=== PATIENT | female | born 1970 | race American Indian/Alaskan Native ===

== ENCOUNTER 2019-07-23 06:14 | Day surgery (SDC) | payer OTHER ==
[~2019-07-23 06:14] MED LIST: ACETAMINOPHEN 500 MG TAB PO SCH; CELECOXIB 200 MG CAP PO NR; ENOXAPARIN 40 MG/0.4 ML INJ SUB-Q SCH; GABAPENTIN 300 MG CAP PO NR; LACTATED RINGERS 1,000 ML IV SCH; MIDAZOLAM 2 MG/2 ML INJ IV NR; SCOPOLAMINE TRANSDERMAL PATCH 72 HR TD NR; SODIUM CHLORIDE 0.9% 1000 ML 1,000 ML, EPINEPHrine/PF 1:1,000 1 MG, LIDOCAINE 1% 20 mL ... IR SCH; ceFAZolin/Water 2 GM/20 ML 2 GM/20 ML SYRINGE IV NR
--- NOTE | 2019-07-23 06:55 | Anesthesia Consultation ---
Anesthesia Consult and Med Hx Date of service: 07/23/19 - Airway Anesthetic Teeth Evaluation: Good ROM Head & Neck: Adequate Mental/Hyoid Distance: Adequate Mallampati Class: Class II Intubation Access Assessment: Probably Good - Pulmonary Exam CTA: Yes - Cardiac Exam Cardiac Exam: RRR - Pre-Operative Health Status ASA Pre-Surgery Classification: ASA1 Proposed Anesthetic Plan: General - Pulmonary Hx Smoking: No Hx Respiratory Symptoms: No - Cardiovascular System Hx Hypertension: No Hx Heart Attack/AMI: No - Central Nervous System CVA: No Hx Back Pain: Yes (CHRONIC) - Gastrointestinal Hx Gastroesophageal Reflux Disease: No - Endocrine Hx Renal Disease: No Hx Liver Disease: No Hx Insulin Dependent Diabetes: No Hx Non-Insulin Dependent Diabetes: No Hx Thyroid Disease: No - Hematic Hx Anemia: No - Other Systems Hx Obesity: No - Additional Comments Anesthesia Medical History Comments: No hx anesthetic complications.
[2019-07-23] MEDS ORDERED: HYDROmorphone 1 MG/1 ML INJ IV PRN (06:56)
--- NOTE | 2019-07-23 06:56 | Anesthesia Day of Surgery ---
Anesthesia Day of Surgery - Day of Surgery Patient Examined: Yes Patient H&P Reviewed: Yes Patient is NPO: Yes
[2019-07-23] MEDS ORDERED: BACTERIOSTATIC SODIUM CHLORIDE 0.9% 30 ML VIAL INFILTRATI ONE (06:58)
[2019-07-23] MEDS ORDERED: LIDOCAINE 1%/EPINEPHRINE 1:100,000 VIAL (20 ML) INFILTRATI ONE ×5 (07:50→13:14)
[2019-07-23] MEDS ORDERED: ROCURONIUM 50 MG/5 ML INJ IV ONE (08:28)
[2019-07-23] MEDS ORDERED: HYDROmorphone 1 MG/1 ML INJ ONE (08:28)
[2019-07-23] MEDS ORDERED: LIDOCAINE MPF (2%) 20 MG/1 ML VIAL 5 ML ONE (08:28)
[2019-07-23] MEDS ORDERED: fentaNYL 250 MCG/5 ML INJ ONE (08:28)
[2019-07-23] MEDS ORDERED: MIDAZOLAM 2 MG/2 ML INJ ONE (08:28)
[2019-07-23] MEDS ORDERED: PROPOFOL 200 MG/20 ML VIAL IV ONE (08:29)
[2019-07-23] MEDS ORDERED: dexAMETHasone 20 MG/5 ML VIAL ONE (08:56)
[2019-07-23] MEDS ORDERED: ONDANSETRON 4 MG/2 ML INJ ONE (08:56)
[2019-07-23] MEDS ORDERED: METOCLOPRAMIDE 10 MG/2 ML INJ ONE (08:56)
[2019-07-23] MEDS ORDERED: PHENYLEPHRINE/NS 1,000 MCG/10 ML SYRINGE (OR USE) IV ONE (09:05)
[2019-07-23] MEDS ORDERED: SODIUM CHLORIDE 0.9% IRR 1,500 ML BOTTLE IR ONE (09:52)
[2019-07-23] MEDS ORDERED: LACTATED RINGERS 2,000 ML ONE (11:25)
[2019-07-23] MEDS ORDERED: PHENYLEPHRINE 10 MG/1 ML INJ SDV ONE (11:55)
[2019-07-23] MEDS ORDERED: SODIUM CHLORIDE 0.9% 100 ML ONE (11:55)
[2019-07-23] MEDS ORDERED: GLYCOPYRROLATE 0.4 MG/2 ML INJ ONE (14:18)
[2019-07-23] MEDS ORDERED: KETOROLAC 30 MG/1 ML INJ ONE (14:18)
[2019-07-23] MEDS ORDERED: NEOSTIGMINE 10MG/10 ML INJ MDV ONE (14:18)
--- NOTE | 2019-07-23 15:05 | Operative Report ---
Operative Report Operative Report: Plastic Surgery Operative Note Preoperative Diagnosis: Unacceptable cosmetic appearance Postopertive Diagnosis: Same Procedure: Bilateral breast fat grafting placement with jennie-areolar mastopexy; Full lipoabdominoplasty with liposuction of the upper and lower abdomen and anterior waistline. Surgeon: Dr. Amarilys [address] Supervisor: LUDWIG Pineda Anesthesia: General endotracheal EBL: 50cc Indications: This patient is a 48 year old AAF who presented with complaint of lost breast fullness and volume after childbearing. Since then she has also had stretch stewart on her abdomen and loose skin that affect her self confidence. She desires a Mommy Makeover for a peng, more perky appearance in her breasts and to achieve a flat abdomen. We discussed the benefits and risks of surgery including fat resorption, fat calcification, infection, hematoma, seroma, scarring, wound dehiscence, skin necrosis and the need for further surgery. Patient understands and accepts these risks and desires to proceed with surgery. Procedure: After marking in preoperative holding the patient was brought into the operating room and placed supine on the OR table. After induction of adequate general endotracheal anesthesia, the patient's chest was prepped and draped in the usual sterile surgical fashion. To begin, markings were refreshed and 1% lidocaine with epinephrine was injected into the incisions. Attention was first turned to the lipoabdominoplasty portion of the procedure. Using an 11 blade, cannula entry incisions were made in the lower abdomen, and 3 L of tumescent solution was infiltrated into the tissues of the abdomen and flanks. Power assisted liposcution was performed until aspirate was blood-tinged, for a total of 4 L removed, 2 L of which was pure fat. We then began the tummy tuck portion of the procedure, creating a lower abdominal incision using a 10 blade, which was carried through subcutaneous tissue using the electrocautery. This dissection along the rectus fascia was carried cephalad to the xiphoid process, after which point rectus diastasis (measuring 5 cm at its widest) was repaired using 0 PDO Quill suture. The bed was then placed in a beach chair position and the lower abdominal pannus was marked and sharply excised. A 19 Fr Miguel drain was placed and secured with a 2-0 Nylon suture and we began closure of her incisions in 3 layers beginning with a PDO Quill suture to approximate Yoshi's fascia follwed by 3-0 Monoderm Quill in 2 layers. The umbilicus was delivered through the abdominal skin flap and secured with 2-0 Monocryl and 4-0 subcuticular sutures. All incisions were then sealed with Dermabond. Next, we turned our attention to the jennie areolar breast lift. A 45mm Cookie cutter was used to reina our incisions and a No. 10 blade was used to excise excess areolar skin and decrease the areolar diameter, effectively lifting the breats. Electrocautery was used for hemostasis and we began closure using 2-0 Monocryl and 3-0 Monoderm Quill sutures. Once this was finished, we performed fat grafting to the bilateral breasts with blunt cannulas for a total of 480cc on the right and 540cc on the left. The grafting incisions were then closed with 4-0 Monocryl sutures. Telfa and tegaderm dressings were placed on the breasts along with ABD pads to the abdomen, followed by surgical bra and an abdominal binder. The patient was then awakened from general anesthesia and transferred to PACU in stable condition. There were no complications. All sponge, needle and instrument counts were correct at the end of the case.
[2019-07-23 16:28] VITALS: BP 124/74
--- NOTE | 2019-07-23 17:08 | Post Anesthesia Evaluation ---
- Post Anesthesia Evaluation Patient Participated: Yes Airway Patent: Yes Stable Respiratory Function: Yes Nausea/Vomiting: No Temp > 96.8F: Yes Pain Manageable: Yes Adequeate Hydration: Yes Anesthesia Complications: No
== END 2019-07-23 16:29 | disposition home or self-care (01) ==
LOC: OR 06:14
PROVIDERS: ATTEND Plastic Surgery
DX: Z41.1 Encounter for cosmetic surgery (principal); Z98.890 Other specified postprocedural states; Z98.51 Tubal ligation status
CPT/HCPCS: 15830; 15847; 19316; 20926; 81025; J0690; J1100; J1170; J1650; J1885; J2250; J2370; J2405; J2704; J2710; J2765; J3010; J7120